=== PATIENT | female | born 1945 | race Caucasian/White ===

== ENCOUNTER 2018-08-27 13:10 | Inpatient (IN) | payer MEDICARE, OTHER ==
[2018-08-27] MEDS: MECLIZINE 12.5 MG TAB PO (13:50)
[2018-08-27] MEDS: SOD CHLORIDE 0.9% 500 ML IV (13:50)
[2018-08-27 13:58] LABS: ADD MAN DIFF? NO
[2018-08-27 14:04] LABS: WHITE BLOOD COUNT 6.7 10^3/ul (4.8-10.8)
[2018-08-27 14:04] LABS: BASOPHILS % 0.3 % (0.0-2.0); EOSINOPHILS # 0.1 10^3/ul (0.0-0.5); EOSINOPHILS % 2.1 % (0.0-7.0); HEMATOCRIT 36.2 % (37.0-47.0); HEMOGLOBIN 11.3 g/dl (12.0-16.0); LYMPHOCYTES # 1.8 10^3/ul (0.8-2.9); LYMPHOCYTES % 26.3 % (15.0-51.0); MEAN CORPUSCULAR HEMOGLOBIN 26.7 pg (29.0-33.0); MEAN CORPUSCULAR HGB CONC 31.2 g/dl (32.0-37.0); MEAN CORPUSCULAR VOLUME 85.6 fl (82.0-101.0); MEAN PLATELET VOLUME 10.7 fl (7.4-10.4); MONOCYTE # 0.6 10^3/ul (0.3-0.9); MONOCYTES % 8.6 % (0.0-11.0); NEUTROPHIL # 4.2 10^3/ul (1.6-7.5); NEUTROPHILS % 62.4 % (39.0-77.0); PLATELET COUNT 193 10^3/UL (140-415); RED BLOOD COUNT 4.23 10^6/ul (4.20-5.40); RED CELL DISTRIBUTION WIDTH 15.8 % (11.5-14.5)
[2018-08-27 14:24] LABS: INR 0.92; PROTIME 12.5 Sec (11.9-14.9)
[2018-08-27 14:25] LABS: PARTIAL THROMBOPLASTIN TIME 29.7 Sec (23.0-35.0)
[2018-08-27 14:30] LABS: ANION GAP 10 (5-13); BLOOD UREA NITROGEN 38 mg/dl (7-20); CALCIUM 9.2 mg/dl (8.4-10.2); CARBON DIOXIDE 24 mmol/L (21-31); CHLORIDE 105 mmol/L (97-110); CREATININE 1.41 mg/dl (0.44-1.00); GLUCOSE 114 mg/dl (70-220); POTASSIUM 4.5 mmol/L (3.5-5.1); SODIUM 139 mmol/L (135-144)
[2018-08-27 14:41] LABS: TROPONIN-I < 0.012 ng/ml (0.000-0.120)
[2018-08-27] MEDS ORDERED: ALBUTEROL/IPRATROPIUM (NEB) 3 ML AMP HHN (21:30)
[2018-08-27] MEDS ORDERED: ONDANSETRON 4 MG INJ IV (21:30)
[2018-08-27] MEDS ORDERED: NACL 0.9% 3 ML SYG IV (21:30)
[2018-08-27 23:10] LABS: CREATINE KINASE 29 IU/L (23-200)
[2018-08-27 23:22] LABS: CK INDEX 2.1; TROPONIN-I < 0.012 ng/ml (0.000-0.120)
[2018-08-28 05:01] LABS: ADD MAN DIFF? NO
[2018-08-28 05:12] LABS: WHITE BLOOD COUNT 5.9 10^3/ul (4.8-10.8)
[2018-08-28 05:12] LABS: BASOPHILS % 0.3 % (0.0-2.0); EOSINOPHILS # 0.1 10^3/ul (0.0-0.5); EOSINOPHILS % 1.9 % (0.0-7.0); HEMATOCRIT 36.7 % (37.0-47.0); HEMOGLOBIN 11.1 g/dl (12.0-16.0); LYMPHOCYTES # 1.6 10^3/ul (0.8-2.9); LYMPHOCYTES % 27.2 % (15.0-51.0); MEAN CORPUSCULAR HEMOGLOBIN 26.7 pg (29.0-33.0); MEAN CORPUSCULAR HGB CONC 30.2 g/dl (32.0-37.0); MEAN CORPUSCULAR VOLUME 88.4 fl (82.0-101.0); MEAN PLATELET VOLUME 10.9 fl (7.4-10.4); MONOCYTE # 0.5 10^3/ul (0.3-0.9); MONOCYTES % 8.4 % (0.0-11.0); NEUTROPHIL # 3.6 10^3/ul (1.6-7.5); NEUTROPHILS % 61.9 % (39.0-77.0); PLATELET COUNT 189 10^3/UL (140-415); RED BLOOD COUNT 4.15 10^6/ul (4.20-5.40); RED CELL DISTRIBUTION WIDTH 15.7 % (11.5-14.5)
[2018-08-28 05:27] LABS: CREATINE KINASE 30 IU/L (23-200)
[2018-08-28 05:29] LABS: HEMOGLOBIN A1C 5.9 % (0-5.9)
[2018-08-28 05:41] LABS: CK INDEX 1.7; CK-MB 0.51 ng/ml (0.0-2.4); TROPONIN-I < 0.012 ng/ml (0.000-0.120)
[2018-08-28 05:45] LABS: ALANINE AMINOTRANSFERASE 15 IU/L (13-69); ALBUMIN 3.8 g/dl (3.3-4.9); ALBUMIN/GLOBULIN RATIO 1.15; ALKALINE PHOSPHATASE 65 IU/L (42-121); ANION GAP 8 (5-13); ASPARTATE AMINO TRANSFERASE 18 IU/L (15-46); BILIRUBIN,INDIRECT 0.2 mg/dl (0-1.1); BILIRUBIN,TOTAL 0.2 mg/dl (0.2-1.3); BLOOD UREA NITROGEN 34 mg/dl (7-20); CALCIUM 9.4 mg/dl (8.4-10.2); CARBON DIOXIDE 27 mmol/L (21-31); CHLORIDE 107 mmol/L (97-110); CHOL/HDL RATIO 5.1 RATIO; CHOLESTEROL 250 mg/dl (100-200); CREATININE 1.24 mg/dl (0.44-1.00); GLUCOSE 110 mg/dl (70-220); HDL CHOLESTEROL 49 mg/dl (33-92); LDL CHOLESTEROL,CALCULATED 160 mg/dl; POTASSIUM 5.1 mmol/L (3.5-5.1); SODIUM 142 mmol/L (135-144); TOTAL PROTEIN 7.1 g/dl (6.1-8.1); TRIGLYCERIDES 207 mg/dl (0-149)
[2018-08-28] MEDS: LEVOTHYROXINE 125 MCG TAB PO (06:46)
[2018-08-28] MEDS: PANTOPRAZOLE (EC) 40 MG TAB PO (06:47)
[2018-08-28] MEDS: CLOPIDOGREL 75 MG TAB PO (08:28)
[2018-08-28] MEDS: ALLOPURINOL 100 MG TAB PO (08:28)
[2018-08-28] MEDS: LISINOPRIL 10 MG TAB PO (08:28)
[2018-08-28] MEDS: ISOSORBIDE MONONITRATE(SR)60 MG TAB PO (08:29)
[2018-08-28] MEDS: CREON (24K-76K-120K) 1 CAP PO ×3 (08:29→18:00)
[2018-08-28] MEDS: MELOXICAM 15 MG TAB PO (08:30)
[2018-08-28] MEDS: METOPROLOL 25 MG TAB PO (08:32)
[2018-08-28] MEDS: HEPARIN 5,000 UNIT/1 ML VIAL SC ×2 (08:36→22:31)
[2018-08-28] MEDS: DICLOFENAC SODIUM 1% GEL 100 GM TUBE TP ×4 (09:00→22:06)
[2018-08-28 10:06] LABS: B-TYPE NATRIURETIC PEPTIDE 493 PG/ML (0-125)
[2018-08-28] MEDS: FLUTICASONE/VILANTEROL 200-25 INH DEVICE INH (12:13)
[2018-08-28] MEDS: ATORVASTATIN 40 MG TAB PO (22:05)
[2018-08-29] MEDS: LEVOTHYROXINE 125 MCG TAB PO (06:26)
[2018-08-29] MEDS: PANTOPRAZOLE (EC) 40 MG TAB PO (06:27)
[2018-08-29] MEDS: FUROSEMIDE 20 MG INJ IV ×2 (06:28→17:31)
[2018-08-29] MEDS: CREON (24K-76K-120K) 1 CAP PO ×3 (08:00→17:33)
[2018-08-29 08:22] LABS: ADD UMIC YES; UR ASCORBIC ACID NEGATIVE (NEGATIVE); UR BILIRUBIN (Dip) NEGATIVE (NEGATIVE); UR BLOOD (Dip) NEGATIVE (NEGATIVE); UR CLARITY SLIGHTLY CLOUDY (CLEAR); UR COLOR YELLOW (YELLOW); UR GLUCOSE (Dip) NEGATIVE (NEGATIVE); UR KETONES (Dip) TRACE mg/dL (NEGATIVE); UR LEUKOCYTE ESTERASE (Dip) NEGATIVE Leu/ul (NEGATIVE); UR NITRITE (Dip) NEGATIVE (NEGATIVE); UR RBC 1 /HPF (0-5); UR SPECIFIC GRAVITY (Dip) 1.013 (1.003-1.030); UR SQUAMOUS EPITHELIAL CELL FEW /HPF (FEW); UR TOTAL PROTEIN (Dip) 1+ mg/dl (NEGATIVE); UR UROBILINOGEN (Dip) NEGATIVE (NEGATIVE); UR WBC 13 /HPF (0-5)
[2018-08-29] MEDS: FLUTICASONE/VILANTEROL 200-25 INH DEVICE INH (08:50)
[2018-08-29] MEDS: ALLOPURINOL 100 MG TAB PO (08:50)
[2018-08-29] MEDS: CLOPIDOGREL 75 MG TAB PO (08:50)
[2018-08-29] MEDS: DICLOFENAC SODIUM 1% GEL 100 GM TUBE TP ×4 (08:50→20:16)
[2018-08-29] MEDS: ISOSORBIDE MONONITRATE(SR)60 MG TAB PO (08:51)
[2018-08-29] MEDS: HEPARIN 5,000 UNIT/1 ML VIAL SC ×2 (08:52→22:14)
[2018-08-29 08:59] LABS: SODIUM,URINE RANDOM 89 mmol/L (30-90)
[2018-08-29 08:59] LABS: CREATININE,URINE RANDOM 98.47 mg/dl (20-320)
[2018-08-29 13:19] LABS: ANION GAP 10 (5-13); BLOOD UREA NITROGEN 36 mg/dl (7-20); CALCIUM 9.6 mg/dl (8.4-10.2); CARBON DIOXIDE 27 mmol/L (21-31); CHLORIDE 105 mmol/L (97-110); CREATININE 1.64 mg/dl (0.44-1.00); GLUCOSE 128 mg/dl (70-220); SODIUM 142 mmol/L (135-144)
[2018-08-29 13:25] LABS: POTASSIUM 5.2 mmol/L (3.5-5.1)
[2018-08-29] MEDS: ACETAMINOPHEN 325 MG TAB PO (15:22)
[2018-08-29] MEDS: SODIUM POLYSTYRENE 15 GM KIT (POWDER + SORBITOL) PO (15:59)
[2018-08-29] MEDS: ATORVASTATIN 40 MG TAB PO (20:17)
[2018-08-30] MEDS: ACETAMINOPHEN 325 MG TAB PO ×2 (02:27→21:38)
[2018-08-30] MEDS: PANTOPRAZOLE (EC) 40 MG TAB PO (06:35)
[2018-08-30] MEDS: FUROSEMIDE 20 MG INJ IV (06:35)
[2018-08-30 06:36] LABS: ANION GAP 10 (5-13); BLOOD UREA NITROGEN 39 mg/dl (7-20); CALCIUM 9.1 mg/dl (8.4-10.2); CARBON DIOXIDE 27 mmol/L (21-31); CHLORIDE 106 mmol/L (97-110); CREATININE 1.67 mg/dl (0.44-1.00); GLUCOSE 118 mg/dl (70-220); POTASSIUM 4.1 mmol/L (3.5-5.1); SODIUM 143 mmol/L (135-144)
[2018-08-30] MEDS: LEVOTHYROXINE 125 MCG TAB PO (06:38)
[2018-08-30] MEDS: CLOPIDOGREL 75 MG TAB PO (08:25)
[2018-08-30] MEDS: ISOSORBIDE MONONITRATE(SR)60 MG TAB PO (08:25)
[2018-08-30] MEDS: CREON (24K-76K-120K) 1 CAP PO ×3 (08:25→17:22)
[2018-08-30] MEDS: ALLOPURINOL 100 MG TAB PO (08:25)
[2018-08-30] MEDS: DICLOFENAC SODIUM 1% GEL 100 GM TUBE TP ×4 (08:26→21:44)
[2018-08-30] MEDS: FLUTICASONE/VILANTEROL 200-25 INH DEVICE INH (08:26)
[2018-08-30] MEDS: HEPARIN 5,000 UNIT/1 ML VIAL SC ×2 (08:31→21:44)
[2018-08-30] MEDS: SOD CHLORIDE 0.9% 500 ML IV (11:18)
[2018-08-30] MEDS: ATORVASTATIN 40 MG TAB PO (21:36)
[2018-08-31 06:21] LABS: URIC ACID 7.4 mg/dl (3.1-7.9)
[2018-08-31 06:25] LABS: B-TYPE NATRIURETIC PEPTIDE 416 PG/ML (0-125)
[2018-08-31 06:26] LABS: ANION GAP 8 (5-13); BLOOD UREA NITROGEN 35 mg/dl (7-20); CARBON DIOXIDE 29 mmol/L (21-31); CHLORIDE 106 mmol/L (97-110); CREATININE 1.44 mg/dl (0.44-1.00); GLUCOSE 129 mg/dl (70-220); SODIUM 143 mmol/L (135-144)
[2018-08-31] MEDS: PANTOPRAZOLE (EC) 40 MG TAB PO (06:48)
[2018-08-31] MEDS: LEVOTHYROXINE 125 MCG TAB PO (06:48)
[2018-08-31] MEDS: ALLOPURINOL 100 MG TAB PO (08:16)
[2018-08-31] MEDS: CREON (24K-76K-120K) 1 CAP PO ×3 (08:16→17:11)
[2018-08-31] MEDS: ISOSORBIDE MONONITRATE(SR)60 MG TAB PO (08:17)
[2018-08-31] MEDS: FLUTICASONE/VILANTEROL 200-25 INH DEVICE INH (08:17)
[2018-08-31] MEDS: CLOPIDOGREL 75 MG TAB PO (08:17)
[2018-08-31] MEDS: DICLOFENAC SODIUM 1% GEL 100 GM TUBE TP ×4 (08:17→21:11)
[2018-08-31] MEDS: HEPARIN 5,000 UNIT/1 ML VIAL SC ×2 (08:25→21:19)
[2018-08-31] MEDS: ATORVASTATIN 40 MG TAB PO (21:11)
[2018-08-31] MEDS: ACETAMINOPHEN 325 MG TAB PO (23:53)
[2018-09-01 05:43] LABS: ADD MAN DIFF? NO
[2018-09-01 05:46] LABS: WHITE BLOOD COUNT 5.5 10^3/ul (4.8-10.8)
[2018-09-01 05:46] LABS: BASOPHILS % 0.2 % (0.0-2.0); EOSINOPHILS # 0.2 10^3/ul (0.0-0.5); EOSINOPHILS % 2.7 % (0.0-7.0); HEMATOCRIT 37.2 % (37.0-47.0); HEMOGLOBIN 11.7 g/dl (12.0-16.0); LYMPHOCYTES # 1.6 10^3/ul (0.8-2.9); LYMPHOCYTES % 29.9 % (15.0-51.0); MEAN CORPUSCULAR HGB CONC 31.5 g/dl (32.0-37.0); MEAN CORPUSCULAR VOLUME 85.9 fl (82.0-101.0); MEAN PLATELET VOLUME 10.5 fl (7.4-10.4); MONOCYTE # 0.5 10^3/ul (0.3-0.9); MONOCYTES % 9.1 % (0.0-11.0); NEUTROPHIL # 3.2 10^3/ul (1.6-7.5); NEUTROPHILS % 57.7 % (39.0-77.0); PLATELET COUNT 182 10^3/UL (140-415); RED BLOOD COUNT 4.33 10^6/ul (4.20-5.40); RED CELL DISTRIBUTION WIDTH 15.6 % (11.5-14.5)
[2018-09-01 05:59] LABS: INR 0.86; PROTIME 11.8 Sec (11.9-14.9); PT RATIO 0.9
[2018-09-01] MEDS: PANTOPRAZOLE (EC) 40 MG TAB PO (06:11)
[2018-09-01] MEDS: LEVOTHYROXINE 125 MCG TAB PO (06:12)
[2018-09-01 06:17] LABS: ANION GAP 7 (5-13); BLOOD UREA NITROGEN 38 mg/dl (7-20); CALCIUM 9.2 mg/dl (8.4-10.2); CARBON DIOXIDE 31 mmol/L (21-31); CHLORIDE 105 mmol/L (97-110); CREATININE 1.44 mg/dl (0.44-1.00); GLUCOSE 128 mg/dl (70-220); POTASSIUM 3.8 mmol/L (3.5-5.1); SODIUM 143 mmol/L (135-144)
[2018-09-01] MEDS: CREON (24K-76K-120K) 1 CAP PO ×3 (08:00→17:27)
[2018-09-01] MEDS: ALLOPURINOL 100 MG TAB PO (08:30)
[2018-09-01] MEDS: HEPARIN 5,000 UNIT/1 ML VIAL SC (08:30)
[2018-09-01] MEDS: DICLOFENAC SODIUM 1% GEL 100 GM TUBE TP ×4 (08:30→21:11)
[2018-09-01] MEDS: FLUTICASONE/VILANTEROL 200-25 INH DEVICE INH (08:30)
[2018-09-01] MEDS: CLOPIDOGREL 75 MG TAB PO (08:31)
[2018-09-01] MEDS: ISOSORBIDE MONONITRATE(SR)60 MG TAB PO (08:31)
[2018-09-01] MEDS ORDERED: CEFAZOLIN 2 GM/50 ML (PMX) 50 ML IVPB (11:41)
[2018-09-01] MEDS ORDERED: LIDOCAINE 1% (MDV) 20 ML INJ ×2 (11:42→14:44)
[2018-09-01] MEDS ORDERED: SOD CHLORIDE 0.9% 500 ML (11:42)
[2018-09-01] MEDS ORDERED: PROPOFOL 20 ML (12:12)
[2018-09-01] MEDS ORDERED: morphine 2 MG INJ IV ×2 (13:30)
[2018-09-01] MEDS: POLYMYXIN/BACITRACIN 1L IRRIG IRR (14:16)
[2018-09-01] MEDS: ATORVASTATIN 40 MG TAB PO (21:11)
[2018-09-02] MEDS: hydrALAzine 20 MG INJ IV ×2 (01:03→20:10)
[2018-09-02] MEDS: NITROGLYCERIN (SL) 0.4 MG TAB SL (04:28)
[2018-09-02] MEDS ORDERED: LORAZEPAM 0.5 MG TAB (05:02)
[2018-09-02] MEDS: LORAZEPAM 0.5 MG TAB PO (05:06)
[2018-09-02] MEDS: PANTOPRAZOLE (EC) 40 MG TAB PO (05:06)
[2018-09-02] MEDS: LEVALBUTEROL (NEB) 1.25 MG/0.5 ML AMP HHN (05:07)
[2018-09-02] MEDS: LEVOTHYROXINE 125 MCG TAB PO (05:08)
[2018-09-02] MEDS: ISOSORBIDE MONONITRATE(SR)60 MG TAB PO (08:31)
[2018-09-02] MEDS: DICLOFENAC SODIUM 1% GEL 100 GM TUBE TP ×4 (08:31→20:10)
[2018-09-02] MEDS: ALLOPURINOL 100 MG TAB PO (08:31)
[2018-09-02] MEDS: CLOPIDOGREL 75 MG TAB PO (08:31)
[2018-09-02] MEDS: CREON (24K-76K-120K) 1 CAP PO ×3 (08:31→17:55)
[2018-09-02] MEDS: FLUTICASONE/VILANTEROL 200-25 INH DEVICE INH (08:32)
[2018-09-02] MEDS: ATORVASTATIN 40 MG TAB PO (20:10)
[2018-09-03] MEDS: ACETAMINOPHEN 325 MG TAB PO (00:36)
[2018-09-03] MEDS: PANTOPRAZOLE (EC) 40 MG TAB PO (05:02)
[2018-09-03] MEDS: AMLODIPINE 5 MG TAB PO (05:02)
[2018-09-03] MEDS: LEVOTHYROXINE 125 MCG TAB PO (05:03)
[2018-09-03] MEDS: CLOPIDOGREL 75 MG TAB PO (08:55)
[2018-09-03] MEDS: ISOSORBIDE MONONITRATE(SR)60 MG TAB PO (08:55)
[2018-09-03] MEDS: ALLOPURINOL 100 MG TAB PO (08:55)
[2018-09-03] MEDS: CREON (24K-76K-120K) 1 CAP PO ×2 (08:55→11:45)
[2018-09-03] MEDS: FLUTICASONE/VILANTEROL 200-25 INH DEVICE INH (08:56)
[2018-09-03] MEDS: DICLOFENAC SODIUM 1% GEL 100 GM TUBE TP ×2 (08:56→12:36)
== END 2018-09-03 13:16 | disposition home health service (06) | DRG 242 ==
LOC: E/R 13:10 → 6WM 15:28
PROC: 0JH604Z Insertion of Pacemaker, Single Chamber into Chest Subcutaneous Tissue and Fascia, Open Approach (ICD-10-PCS; principal; 2018-09-01 11:50)
PROC: 02HK3JZ Insertion of Pacemaker Lead into Right Ventricle, Percutaneous Approach (ICD-10-PCS; 2018-09-01 11:50)
DX: I44.0 Atrioventricular block, first degree (principal); I50.23 Acute on chronic systolic (congestive) heart failure; I13.0 Hypertensive heart and chronic kidney disease with heart failure and stage 1 through stage 4 chronic kidney disease, or unspecified chronic kidney disease; N17.9 Acute kidney failure, unspecified; Z68.42 Body mass index [BMI] 45.0-49.9, adult; R55 Syncope and collapse; R07.89 Other chest pain; N18.9 Chronic kidney disease, unspecified; E03.9 Hypothyroidism, unspecified; J43.9 Emphysema, unspecified; Z99.81 Dependence on supplemental oxygen; I48.91 Unspecified atrial fibrillation; E66.01 Morbid (severe) obesity due to excess calories; E78.5 Hyperlipidemia, unspecified; I25.10 Atherosclerotic heart disease of native coronary artery without angina pectoris; E87.5 Hyperkalemia; G47.33 Obstructive sleep apnea (adult) (pediatric); D64.9 Anemia, unspecified; Z95.5 Presence of coronary angioplasty implant and graft
CPT/HCPCS: 70450; 71045; 76775; 80048; 80053; 80061; 81001; 82550; 82553; 83036; 83735; 83880; 84155; 84300; 84443; 84484; 84560; 85025; 85610; 85730; 93005; 93306; 93880; 97116; 97162; 97530